=== PATIENT | female | born 1980 | race Caucasian/White ===

== ENCOUNTER 2020-12-09 00:01 | Inpatient (IN) | payer OTHER ==
[~2020-12-09] VITALS: Ht 154.9 cm; Wt 59.0 kg
[2020-12-09 01:43] LABS: HEMOGLOBIN 12.6 gm/dl (12.3-15.3); RED BLOOD COUNT 4.2 M/UL (4.00-5.10); WHITE BLOOD COUNT 9.8 K/UL (4.5-11.0)
[2020-12-09 02:10] LABS: BUN/CREATININE RATIO 17 (0-10)
[2020-12-10 05:02] LABS: BUN/CREATININE RATIO 16 (0-10)
[2020-12-10 08:14] LABS: HIV SCREEN 4TH GENERATION WRFX Non Reactive (Non Reactive)
[2020-12-10] MEDS ORDERED: BACTRIM DS TAB1 EACH PO (09:19)
[2020-12-10 11:14] LABS: HBSAG SCREEN Negative (Negative); HEP A AB, IGM Negative (Negative); HEP B CORE AB, IGM Negative (Negative); HEP C VIRUS AB >11.0 (0.0-0.9); HEPATITIS B SURF AB QUANT <3.1 mIU/mL (Immunity>9.9)
--- NOTE | 2020-12-10 12:14 | NUR ---
PATIENT OFF THE FLOOR
[2020-12-10 14:11] LABS: TREPONEMA PALLIDUM ANTIBODIES Non Reactive (Non Reactive)
[2020-12-10] MEDS ORDERED: OXYCODONE HCL5 MG PO (15:58)
[2020-12-10] MEDS ORDERED: ZOFRAN4 MG PO (15:58)
--- NOTE | 2020-12-10 17:48 | NUR ---
PATIENT KNOWLEDGEABLE OF HER WOUND CARE. VERB ABLE TO PERFORM WOUND CARE. WILL PROVIDE WOUND CARE SUPPLIES.
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
[2020-12-10 19:11] LABS: CHLAMYDIA TRACHOMATIS, NAA Negative (Negative); NEISSERIA GONORRHOEAE, NAA Negative (Negative)
== END 2020-12-10 18:29 | disposition home or self-care (01) | DRG 571 ==
LOC: ER1 00:01 → CDU 05:43 → M/S 11:24
PROVIDERS: Internal Medicine; Physician Assistant; Surgery Trauma Surgery; ADMIT Internal Medicine
PROC: 0JBP0ZZ Excision of Left Lower Leg Subcutaneous Tissue and Fascia, Open Approach (ICD-10-PCS; 2020-12-09)
PROC: 0J9H0ZZ Drainage of Left Lower Arm Subcutaneous Tissue and Fascia, Open Approach (ICD-10-PCS; principal; 2020-12-09 13:00)
DX: L02.414 Cutaneous abscess of left upper limb (principal); L02.416 Cutaneous abscess of left lower limb; Z20.822 Contact with and (suspected) exposure to COVID-19; F11.10 Opioid abuse, uncomplicated; B19.20 Unspecified viral hepatitis C without hepatic coma; F17.210 Nicotine dependence, cigarettes, uncomplicated; E87.6 Hypokalemia; Z83.3 Family history of diabetes mellitus; Z91.14 Patient's other noncompliance with medication regimen; Z90.49 Acquired absence of other specified parts of digestive tract
CPT/HCPCS: 36415; 71045; 73201; 73701; 80048; 80053; 80074; 80202; 81001; 82550; 82553; 83605; 83874; 84484; 84703; 85018; 85025; 86140; 86317; 86780; 87040; 87070; 87086; 87205; 87340; 87389; 93005; 96365; 96366; 96368; 96375; 96376; 99284; J1100; J1170; J1650; J1885; J2001; J2250; J2405; J2543; J2704; J2795; J3010; J3370; J7030; J7070; J7120; Q9967; U0002